=== PATIENT | female | born 1950 | race Caucasian/White ===

== ENCOUNTER 2023-04-20 21:42 | Outpatient (REF) | payer MEDICARE, OTHER, SELFPAY ==
[2023-04-23 18:10] LABS: Age Gdln ACOG Testing Note (.); Pap IG (Image Guided) Note (.)
== END 2023-04-20 21:43 | disposition home or self-care (01) ==
LOC: LAB 21:42
PROVIDERS: Visit Provider Obstetrics & Gynecology
DX: Z01.419 Encounter for gynecological examination (general) (routine) without abnormal findings (principal)
CPT/HCPCS: G0145